=== PATIENT | male | born 1935 | race Caucasian/White ===

== ENCOUNTER 2016-11-06 17:57 | Inpatient (IN) | payer OTHER ==
[~2016-11-06] VITALS: Ht 180.3 cm; Wt 93.4 kg
[~2016-11-06 17:57] MED LIST changes: -CHOL200026 PO; -POTA10TA11 PO
[2016-11-06 18:49] LABS: ASPARTATE AMINO TRANSFERASE 23 U/L (15-37); BLOOD UREA NITROGEN 21 mg/dL (7-18)
[2016-11-06 18:54] LABS: IS PT STATUS REG ER OR PRE ER? YES
[2016-11-06] MEDS ORDERED: CEFTRIAXONE PMX 1GM/50ML 50 ML IV ONE (19:00)
[2016-11-06] MEDS ORDERED: AZITHROMYCIN 500 MG in SODIUM CHLORIDE 0.9% 250 ML IV ONE (19:00)
[2016-11-06] MEDS ORDERED: CEFTRIAXONE PMX 1GM/50ML 50 ML ONE (19:10)
[2016-11-06] MEDS ORDERED: FUROSEMIDE 40 MG/4 ML ONE (19:46)
[2016-11-06] MEDS ORDERED: ASPIRIN 81 MG TABLET CHEW ONE (19:46)
[2016-11-06] MEDS ORDERED: FUROSEMIDE 40 MG/4 ML IV ONE (20:00)
[2016-11-06] MEDS ORDERED: ASPIRIN 81 MG TABLET CHEW PO ONE (20:00)
[2016-11-06] MEDS ORDERED: BISACODYL 10 MG SUPP PR PRN (21:00)
[2016-11-06] MEDS: ATORVASTATIN 10 MG TABLET PO SCH (21:00)
[2016-11-06] MEDS ORDERED: LABETALOL 5MG/ML, 20ML IV PRN (21:00)
[2016-11-06] MEDS ORDERED: WARFARIN 7.5 MG TABLET PO-COUM PRN (21:00)
[2016-11-06] MEDS ORDERED: ACETAMINOPHEN 325 MG TABLET PO PRN (21:00)
[2016-11-06] MEDS ORDERED: DOCUSATE 100 MG CAPSULE PO PRN (21:00)
[2016-11-06] MEDS ORDERED: POLYETHYLENE GLYCOL 17 GM PACKET PO PRN (21:00)
[2016-11-06 21:29] VITALS: BP 116/72
[2016-11-06] MEDS ORDERED: POTA10TA11 PO (22:39)
[2016-11-06] MEDS ORDERED: CHOL200026 PO (22:39)
[2016-11-06 23:56] LABS: IS PT STATUS REG ER OR PRE ER? NO
[2016-11-07 02:00] VITALS: BP 100/59
[2016-11-07 05:32] LABS: ASPARTATE AMINO TRANSFERASE 21 U/L (15-37); BLOOD UREA NITROGEN 21 mg/dL (7-18)
[2016-11-07 05:37] LABS: IS PT STATUS REG ER OR PRE ER? NO
[2016-11-07] MEDS ORDERED: FUROSEMIDE 40 MG/4 ML IV SCH (07:30)
[2016-11-07 07:49] VITALS: BP 113/71
[2016-11-07 14:57] VITALS: BP 102/62
[2016-11-07] MEDS: FUROSEMIDE 20 MG/2 ML IV SCH (17:00)
[2016-11-07] MEDS ORDERED: WARFARIN 7.5 MG TABLET PO-COUM SCH (18:00)
[2016-11-07 19:05] VITALS: BP 103/61
[2016-11-07] MEDS: ATORVASTATIN 10 MG TABLET PO SCH (21:48)
[2016-11-07 23:38] VITALS: BP 100/61
[2016-11-08 04:03] VITALS: BP 107/63
[2016-11-08 04:16] VITALS: BP 121/77
[2016-11-08 04:20] VITALS: BP 103/62
[2016-11-08 05:18] LABS: BLOOD UREA NITROGEN 26 mg/dL (7-18)
[2016-11-08 05:42] VITALS: BP 107/66
[2016-11-08] MEDS ORDERED: MAGNESIUM SULFATE PMX 2GM/50ML 50 ML IV ONE (06:00)
[2016-11-08 07:37] VITALS: BP 133/76
[2016-11-08] MEDS: FUROSEMIDE 20 MG/2 ML IV SCH (08:43)
[2016-11-08 13:33] VITALS: BP 104/65
== END 2016-11-08 15:29 | disposition home or self-care (01) | DRG 291 ==
LOC: ED 19:40 → EDIP 20:10 → 4WST 21:20
PROVIDERS: ADMIT Internal Medicine; ATTEND Internal Medicine
DX: I13.0 Hypertensive heart and chronic kidney disease with heart failure and stage 1 through stage 4 chronic kidney disease, or unspecified chronic kidney disease (principal); I50.33 Acute on chronic diastolic (congestive) heart failure; J96.01 Acute respiratory failure with hypoxia; N17.9 Acute kidney failure, unspecified; D68.69 Other thrombophilia; I48.92 Unspecified atrial flutter; N18.3 Chronic kidney disease, stage 3 (moderate); C61 Malignant neoplasm of prostate; E66.3 Overweight; E78.5 Hyperlipidemia, unspecified; G47.33 Obstructive sleep apnea (adult) (pediatric); I35.0 Nonrheumatic aortic (valve) stenosis; I48.2 Chronic atrial fibrillation; K76.1 Chronic passive congestion of liver; Z68.28 Body mass index [BMI] 28.0-28.9, adult; Z87.891 Personal history of nicotine dependence; Z95.2 Presence of prosthetic heart valve; Z95.3 Presence of xenogenic heart valve
CPT/HCPCS: 36415; 71020; 76604; 80048; 80053; 83605; 83735; 83880; 84145; 84439; 84443; 84484; 85025; 85610; 87040; 93005; 96365; 96368; 96375; J0456; J0696; J1940; J3475; J7050

== ENCOUNTER → 2016-11-06 | Outpatient (CLI) | payer OTHER ==
[~2016-11-06] MED LIST: ATOR10TA9 PO; CHOL200026 PO; FURO-93 PO; POTA10TA11 PO; WARF7.5T6 PO
== END | disposition home or self-care (01) ==
LOC: CFH 13:10
PROVIDERS: ATTEND Internal Medicine
DX: R05 Cough (principal); I11.0 Hypertensive heart disease with heart failure; I50.9 Heart failure, unspecified; I51.7 Cardiomegaly; Z95.2 Presence of prosthetic heart valve; E78.2 Mixed hyperlipidemia; I48.91 Unspecified atrial fibrillation; C61 Malignant neoplasm of prostate; E55.9 Vitamin D deficiency, unspecified; M70.70 Other bursitis of hip, unspecified hip; G47.00 Insomnia, unspecified
CPT/HCPCS: 71020

== ENCOUNTER → 2016-11-20 | Outpatient (CLI) | payer OTHER ==
[~2016-11-20] MED LIST changes: +CHOL200026 PO; +POTA10TA11 PO
== END | disposition home or self-care (01) ==
LOC: CFH 10:34
PROVIDERS: ATTEND Nurse Practitioner Primary Care
DX: I11.0 Hypertensive heart disease with heart failure (principal); J90 Pleural effusion, not elsewhere classified; I50.9 Heart failure, unspecified; R60.0 Localized edema; Z95.4 Presence of other heart-valve replacement
CPT/HCPCS: 71020

== ENCOUNTER → 2017-03-12 | Outpatient (CLI) | payer OTHER ==
[~2017-03-12] MED LIST changes: -CHOL200026 PO; +CHOL200059 PO
== END | disposition home or self-care (01) ==
LOC: CFH 15:38
PROVIDERS: ATTEND Internal Medicine Cardiovascular Disease
DX: I51.7 Cardiomegaly (principal); J90 Pleural effusion, not elsewhere classified; M47.894 Other spondylosis, thoracic region; J98.11 Atelectasis; I48.2 Chronic atrial fibrillation; Z95.2 Presence of prosthetic heart valve
CPT/HCPCS: 71020

== ENCOUNTER → 2018-02-14 | Outpatient (CLI) | payer OTHER ==
[~2018-02-14] MED LIST changes: +WARF7.5T46 PO; -WARF7.5T6 PO
== END | disposition home or self-care (01) ==
LOC: CFH 10:56
PROVIDERS: ATTEND Physician Assistant
DX: I08.1 Rheumatic disorders of both mitral and tricuspid valves (principal); I48.91 Unspecified atrial fibrillation
CPT/HCPCS: 93306

== ENCOUNTER 2018-05-04 02:17 | Inpatient (IN) | payer OTHER ==
[~2018-05-04] VITALS: Ht 177.8 cm; Wt 85.6 kg
[2018-05-04] MEDS ORDERED: ASPIRIN 81 MG TABLET CHEW PO ONE (02:30)
[2018-05-04 02:42] LABS: BASOPHILS # (AUTO) 0.02 x10^3/uL (0-0.1); BASOPHILS % (AUTO) 0 % (0-1); EOSINOPHILS % (AUTO) 0 % (1-7); LYMPHOCYTES # (AUTO) 0.59 x10^3/uL (1-3.4); LYMPHOCYTES % (AUTO) 9 % (22-44); MD NO; MEAN CORPUSCULAR HEMOGLOBIN 32.8 pg (27.5-34.5); MEAN CORPUSCULAR VOLUME 96.6 fL (81-97); MONOCYTES # (AUTO) 0.68 x10^3/uL (0.2-0.8); MONOCYTES % (AUTO) 11 % (2-9); NEUTROPHILS # (AUTO) 5.14 x10^3/uL (1.8-6.8); NEUTROPHILS % (AUTO) 80 % (42-75); PLATELET COUNT 141 x10^3/uL (130-400); RED CELL DISTRIBUTION WIDTH 14.7 % (9.4-14.8)
[2018-05-04 02:51] LABS: INTERNATIONAL NORMALIZED RATIO 1.56 (0.93-1.1); PROTHROMBIN TIME 15.9 Seconds (9.6-11.5)
[2018-05-04 02:54] LABS: ALBUMIN 3.6 g/dL (3.4-5.0); ANION GAP 11 mmol/L (5-15); CALCIUM 9.1 mg/dL (8.5-10.1); CHLORIDE 102 mmol/L (98-107)
[2018-05-04] MEDS ORDERED: ASPIRIN 81 MG TABLET CHEW ONE (02:57)
[2018-05-04] MEDS ORDERED: THROMBIN 20,000 UNIT VIAL TP ONE ×2 (03:08→03:59)
[2018-05-04] MEDS ORDERED: HEPARIN 1,000 UNITS/ML, 30ML ONE (03:08)
[2018-05-04] MEDS ORDERED: PROTAMINE SULFATE 10 MG/ML, 5ML ONE (03:09)
[2018-05-04] MEDS ORDERED: BUPIVACAINE/PF-EPI 0.5% 1:200K ONE (03:09)
[2018-05-04] MEDS ORDERED: WARF1TAB9 PO (03:15)
[2018-05-04] MEDS ORDERED: WARF-36 PO (03:15)
[2018-05-04] MEDS ORDERED: FURO40TA6 PO (03:15)
[2018-05-04] MEDS ORDERED: BACITRACIN 50,000 UNIT ONE (03:23)
[2018-05-04] MEDS ORDERED: FENTANYL PF 250 MCG/5ML ONE (03:32)
[2018-05-04] MEDS ORDERED: PHENYLEPHRINE 10 MG/ML ONE (03:39)
[2018-05-04] MEDS ORDERED: SUCCINYLCHOLINE 20 MG/ML, 10ML ONE (03:39)
[2018-05-04] MEDS ORDERED: ONDANSETRON 2MG/ML, 2ML ONE ×2 (03:39→04:38)
[2018-05-04] MEDS ORDERED: BACITRACIN 50,000 UNIT IRRIG ONE (03:59)
[2018-05-04] MEDS ORDERED: HEPARIN 1,000 UNITS/ML, 30ML IVPush ONE (04:01)
[2018-05-04] MEDS ORDERED: OMNIPAQUE 350 MG/ML, 100ML BOTTLE ONE (04:06)
[2018-05-04] MEDS ORDERED: EPHEDRINE 50 MG/ML, 1ML ONE (04:13)
[2018-05-04] MEDS ORDERED: LABETALOL 5MG/ML, 20ML IV PRN (04:30)
[2018-05-04] MEDS ORDERED: ALBUTEROL/IPRATROPIUM 2.5MG/0.5MG, 3 ML NPPB PRN (04:30)
[2018-05-04] MEDS ORDERED: ACETAMINOPHEN 325 MG TABLET PO PRN (04:30)
[2018-05-04] MEDS ORDERED: hydrALAzine 20 MG/ML, 1ML IV PRN (04:30)
[2018-05-04] MEDS ORDERED: FENTANYL PF 100 MCG/2ML IV PRN (04:30)
[2018-05-04] MEDS ORDERED: ONDANSETRON 2MG/ML, 2ML IV PRN (04:30)
[2018-05-04] MEDS ORDERED: PROMETHAZINE 12.5 MG SUPP PR PRN (04:30)
[2018-05-04] MEDS ORDERED: HYDROmorphone 2 MG/ML, 1ML IV PRN (04:30)
[2018-05-04] MEDS ORDERED: OXYcodone 5 MG/5 ML ORAL.SOL UDC PO PRN (04:30)
[2018-05-04] MEDS ORDERED: PROPOFOL 10 MG/ML, 20ML ONE (04:38)
[2018-05-04] MEDS ORDERED: CEFAZOLIN 1,000 MG ONE (04:38)
[2018-05-04] MEDS ORDERED: DEXAMETHASONE 4 MG/ML, 1ML ONE (04:38)
[2018-05-04] MEDS ORDERED: HEPARIN 5,000 UNITS/ML, 1ML IV ONE (05:00)
[2018-05-04] MEDS ORDERED: HEPARIN 25,000 UNITS/500ML PMX 500 ML IV PRN (05:00)
[2018-05-04] MEDS ORDERED: HEPARIN 5,000 UNITS/ML, 1ML IV PRN (05:00)
[2018-05-04] MEDS ORDERED: MORPHINE SULFATE 4 MG/ML, 1ML IVPush PRN (07:30)
[2018-05-04] MEDS ORDERED: HYDROcodone/APAP 5/325 TABLET PO PRN ×2 (07:30→09:00)
[2018-05-04 07:33] VITALS: BP 103/67
[2018-05-04] MEDS: D5%-0.9% NACL+KCL 20MEQ 1,000 ML IV SCH ×2 (08:03→21:30)
[2018-05-04] MEDS ORDERED: SODIUM CHLORIDE 0.9% 1,000 ML IV SCH (08:34)
[2018-05-04] MEDS ORDERED: ONDANSETRON 2MG/ML, 2ML IVPush PRN (09:00)
[2018-05-04] MEDS ORDERED: morphine SULFATE 10 MG/ML, 1ML IVPush PRN (09:00)
[2018-05-04] MEDS: CHOLECALCIFEROL 1,000 UNIT TABLET PO SCH (12:45)
[2018-05-04 12:55] VITALS: BP 106/59
[2018-05-04] MEDS ORDERED: ATOR40TA78 PO (16:48)
[2018-05-04] MEDS ORDERED: SPIR25TA5 PO (16:48)
[2018-05-04 19:49] VITALS: BP 111/64
[2018-05-05 01:48] VITALS: BP 107/72
[2018-05-05 05:40] LABS: CHLORIDE 105 mmol/L (98-107)
[2018-05-05 05:49] LABS: BASOPHILS % (AUTO) 0 % (0-1); EOSINOPHILS % (AUTO) 0 % (1-7); LYMPHOCYTES # (AUTO) 0.62 x10^3/uL (1-3.4); LYMPHOCYTES % (AUTO) 7 % (22-44); MD NO; MEAN CORPUSCULAR HEMOGLOBIN 34.2 pg (27.5-34.5); MEAN CORPUSCULAR VOLUME 97.9 fL (81-97); MEAN PLATELET VOLUME 8.2 fL (7.4-10.4); MONOCYTES # (AUTO) 1.26 x10^3/uL (0.2-0.8); MONOCYTES % (AUTO) 14 % (2-9); NEUTROPHILS % (AUTO) 79 % (42-75); PLATELET COUNT 130 x10^3/uL (130-400); RED BLOOD COUNT 3.01 x10^6/uL (4.38-5.82); RED CELL DISTRIBUTION WIDTH 14.8 % (9.4-14.8)
[2018-05-05 05:51] LABS: ALANINE AMINOTRANSFERASE 15 U/L (12-78); ALBUMIN 3.1 g/dL (3.4-5.0); ALKALINE PHOSPHATASE 69 U/L (45-117); ANION GAP 9 mmol/L (5-15); BILIRUBIN,TOTAL 0.9 mg/dL (0.2-1.0); CALCIUM 8.7 mg/dL (8.5-10.1); CREATININE 1.64 mg/dL (0.7-1.3)
[2018-05-05] MEDS: CHOLECALCIFEROL 1,000 UNIT TABLET PO SCH (07:20)
[2018-05-05] MEDS: D5%-0.9% NACL+KCL 20MEQ 1,000 ML IV SCH (07:23)
[2018-05-05] MEDS: INSULIN LISPRO 100 UNITS/ML, PEN SQ-INSULIN SCH ×4 (08:00→20:18)
[2018-05-05] MEDS ORDERED: SODIUM POLYSTYRENE SULFONATE ORAL SUSP PO ONE (08:00)
[2018-05-05 09:15] VITALS: BP 97/53
[2018-05-05 10:46] LABS: HEMOGLOBIN A1C 5.7 % (4.2-6.3)
[2018-05-05 11:28] LABS: ANION GAP 7 mmol/L (5-15); CALCIUM 9.1 mg/dL (8.5-10.1); CHLORIDE 106 mmol/L (98-107); CREATININE 1.57 mg/dL (0.7-1.3)
[2018-05-05 13:58] LABS: INTERNATIONAL NORMALIZED RATIO 1.48 (0.93-1.1); PROTHROMBIN TIME 15.1 Seconds (9.6-11.5)
[2018-05-05 14:16] VITALS: BP 103/63
[2018-05-05 19:50] VITALS: BP 103/57
[2018-05-05] MEDS: ACETAMINOPHEN 325 MG TABLET PO PRN (20:13)
[2018-05-06 01:23] VITALS: BP 101/65
[2018-05-06 05:31] LABS: MEAN CORPUSCULAR HGB CONC 33.6 g/dL (33.2-36.2); MEAN CORPUSCULAR VOLUME 98.1 fL (81-97); MEAN PLATELET VOLUME 8.5 fL (7.4-10.4); PLATELET COUNT 134 x10^3/uL (130-400); RED BLOOD COUNT 3.17 x10^6/uL (4.38-5.82); RED CELL DISTRIBUTION WIDTH 14.9 % (9.4-14.8)
[2018-05-06 05:46] LABS: CHLORIDE 103 mmol/L (98-107)
[2018-05-06 05:57] LABS: ALANINE AMINOTRANSFERASE 17 U/L (12-78); ALKALINE PHOSPHATASE 78 U/L (45-117); ANION GAP 8 mmol/L (5-15); BILIRUBIN,TOTAL 1.6 mg/dL (0.2-1.0); CALCIUM 8.7 mg/dL (8.5-10.1); CREATININE 1.46 mg/dL (0.7-1.3); TOTAL PROTEIN 6.1 g/dL (6.4-8.2)
[2018-05-06 06:14] LABS: BASOPHILS # (AUTO) 0.02 x10^3/uL (0-0.1); BASOPHILS % (AUTO) 0 % (0-1); EOSINOPHILS # (AUTO) 0.01 x10^3/uL (0-0.4); EOSINOPHILS % (AUTO) 0 % (1-7); LYMPHOCYTES % (AUTO) 6 % (22-44); MD SCAN; MONOCYTES # (AUTO) 0.89 x10^3/uL (0.2-0.8); MONOCYTES % (AUTO) 9 % (2-9); NEUTROPHILS # (AUTO) 8.29 x10^3/uL (1.8-6.8); NEUTROPHILS % (AUTO) 85 % (42-75)
[2018-05-06] MEDS ORDERED: SODIUM POLYSTYRENE SULFONATE ORAL SUSP PO ONE (08:00)
[2018-05-06] MEDS: INSULIN LISPRO 100 UNITS/ML, PEN SQ-INSULIN SCH ×4 (08:00→20:10)
[2018-05-06 08:42] VITALS: BP 96/51
[2018-05-06] MEDS: FUROSEMIDE 40 MG TABLET PO SCH (09:55)
[2018-05-06] MEDS: CHOLECALCIFEROL 1,000 UNIT TABLET PO SCH (09:55)
[2018-05-06] MEDS ORDERED: WARFARIN MODERAT DOSE PROTOCOL XX PRN (10:30)
[2018-05-06] MEDS ORDERED: HEPARIN 5,000 UNITS/ML, 1ML IV ONE (11:00)
[2018-05-06 11:28] LABS: ANION GAP 11 mmol/L (5-15); CALCIUM 8.9 mg/dL (8.5-10.1); CHLORIDE 100 mmol/L (98-107); CREATININE 1.75 mg/dL (0.7-1.3)
[2018-05-06 11:30] LABS: INTERNATIONAL NORMALIZED RATIO 1.31 (0.93-1.1); PROTHROMBIN TIME 13.4 Seconds (9.6-11.5)
[2018-05-06] MEDS: HEPARIN 25,000 UNITS/500ML PMX 500 ML IV PRN (12:51)
[2018-05-06 15:01] VITALS: BP 90/49
[2018-05-06] MEDS ORDERED: WARFARIN 7.5 MG TABLET PO-COUM ONE (18:00)
[2018-05-06 19:39] VITALS: BP 103/54
[2018-05-06] MEDS: ATORVASTATIN 40 MG TABLET PO SCH (20:05)
[2018-05-06] MEDS: HEPARIN 5,000 UNITS/ML, 1ML IV PRN (20:05)
[2018-05-07 01:50] VITALS: BP 94/58
[2018-05-07 02:35] LABS: ALBUMIN 2.6 g/dL (3.4-5.0); ANION GAP 10 mmol/L (5-15); CALCIUM 8.4 mg/dL (8.5-10.1); CHLORIDE 100 mmol/L (98-107)
[2018-05-07] MEDS: HEPARIN 5,000 UNITS/ML, 1ML IV PRN ×3 (02:37→23:08)
[2018-05-07 02:38] LABS: ALANINE AMINOTRANSFERASE 21 U/L (12-78); ALKALINE PHOSPHATASE 75 U/L (45-117); BILIRUBIN,TOTAL 1.6 mg/dL (0.2-1.0); CREATININE 1.61 mg/dL (0.7-1.3); INTERNATIONAL NORMALIZED RATIO 1.3 (0.93-1.1); PROTHROMBIN TIME 13.3 Seconds (9.6-11.5); TOTAL PROTEIN 5.7 g/dL (6.4-8.2)
[2018-05-07] MEDS: INSULIN LISPRO 100 UNITS/ML, PEN SQ-INSULIN SCH ×4 (08:00→21:08)
[2018-05-07 08:58] VITALS: BP 98/54
[2018-05-07 09:35] VITALS: BP 94/53
[2018-05-07] MEDS: CHOLECALCIFEROL 1,000 UNIT TABLET PO SCH (09:37)
[2018-05-07] MEDS: FUROSEMIDE 40 MG TABLET PO SCH (09:37)
[2018-05-07] MEDS: HEPARIN 25,000 UNITS/500ML PMX 500 ML IV PRN (11:20)
[2018-05-07] MEDS ORDERED: WARFARIN 7.5 MG TABLET PO-COUM ONE (18:00)
[2018-05-07 19:13] VITALS: BP 101/58
[2018-05-07] MEDS ORDERED: TAMS0.4C2 PO (19:36)
[2018-05-07] MEDS: ATORVASTATIN 40 MG TABLET PO SCH (21:05)
[2018-05-07] MEDS: TAMSULOSIN 0.4 MG CAP.ER.24H PO SCH (21:05)
[2018-05-08 01:53] VITALS: BP 96/56
[2018-05-08 05:02] LABS: INTERNATIONAL NORMALIZED RATIO 1.31 (0.93-1.1); PROTHROMBIN TIME 13.4 Seconds (9.6-11.5)
[2018-05-08 05:07] LABS: ALBUMIN 2.6 g/dL (3.4-5.0); ANION GAP 9 mmol/L (5-15); CALCIUM 8.2 mg/dL (8.5-10.1); CHLORIDE 101 mmol/L (98-107)
[2018-05-08 05:10] LABS: ALANINE AMINOTRANSFERASE 25 U/L (12-78); ALKALINE PHOSPHATASE 76 U/L (45-117); BILIRUBIN,TOTAL 1.2 mg/dL (0.2-1.0); CREATININE 1.38 mg/dL (0.7-1.3); TOTAL PROTEIN 5.6 g/dL (6.4-8.2)
[2018-05-08] MEDS: HEPARIN 25,000 UNITS/500ML PMX 500 ML IV PRN ×2 (05:36→21:47)
[2018-05-08 06:26] VITALS: BP 107/55
[2018-05-08] MEDS: INSULIN LISPRO 100 UNITS/ML, PEN SQ-INSULIN SCH ×4 (07:00→21:00)
[2018-05-08] MEDS: CHOLECALCIFEROL 1,000 UNIT TABLET PO SCH (09:12)
[2018-05-08 14:05] VITALS: BP 103/61
[2018-05-08] MEDS ORDERED: WARFARIN 5 MG TABLET PO-COUM ONE (17:48)
[2018-05-08] MEDS ORDERED: WARFARIN 10 MG TABLET PO-COUM ONE (18:00)
[2018-05-08 19:48] VITALS: BP 100/59
[2018-05-08] MEDS: ATORVASTATIN 40 MG TABLET PO SCH (21:48)
[2018-05-08] MEDS: TAMSULOSIN 0.4 MG CAP.ER.24H PO SCH (21:48)
[2018-05-09 01:29] VITALS: BP 92/56
[2018-05-09 05:53] LABS: INTERNATIONAL NORMALIZED RATIO 1.4 (0.93-1.1); PROTHROMBIN TIME 14.3 Seconds (9.6-11.5)
[2018-05-09 06:02] LABS: ANION GAP 10 mmol/L (5-15); CALCIUM 8.3 mg/dL (8.5-10.1); CHLORIDE 100 mmol/L (98-107)
[2018-05-09 06:04] LABS: CREATININE 1.17 mg/dL (0.7-1.3)
[2018-05-09] MEDS: INSULIN LISPRO 100 UNITS/ML, PEN SQ-INSULIN SCH ×4 (07:00→19:58)
[2018-05-09 08:12] VITALS: BP 99/62
[2018-05-09] MEDS: CHOLECALCIFEROL 1,000 UNIT TABLET PO SCH (09:25)
[2018-05-09 13:10] VITALS: BP 99/62
[2018-05-09] MEDS: HEPARIN 25,000 UNITS/500ML PMX 500 ML IV PRN (14:32)
[2018-05-09] MEDS ORDERED: WARFARIN 5 MG TABLET PO-COUM ONE (17:58)
[2018-05-09] MEDS ORDERED: WARFARIN 10 MG TABLET PO-COUM ONE (18:00)
[2018-05-09 19:43] VITALS: BP 110/70
[2018-05-09] MEDS: TAMSULOSIN 0.4 MG CAP.ER.24H PO SCH (19:58)
[2018-05-09] MEDS: ATORVASTATIN 40 MG TABLET PO SCH (19:58)
[2018-05-10 01:18] VITALS: BP 99/60
[2018-05-10 05:27] LABS: INTERNATIONAL NORMALIZED RATIO 1.73 (0.93-1.1); PROTHROMBIN TIME 17.6 Seconds (9.6-11.5)
[2018-05-10 05:32] LABS: ANION GAP 9 mmol/L (5-15); CALCIUM 8.6 mg/dL (8.5-10.1); CHLORIDE 101 mmol/L (98-107)
[2018-05-10] MEDS: HEPARIN 25,000 UNITS/500ML PMX 500 ML IV PRN ×2 (06:57→21:34)
[2018-05-10] MEDS: INSULIN LISPRO 100 UNITS/ML, PEN SQ-INSULIN SCH ×4 (07:00→21:00)
[2018-05-10 07:35] VITALS: BP 99/58
[2018-05-10] MEDS: CHOLECALCIFEROL 1,000 UNIT TABLET PO SCH (07:51)
[2018-05-10 13:50] VITALS: BP 97/59
[2018-05-10] MEDS: FUROSEMIDE 40 MG TABLET PO SCH (16:36)
[2018-05-10] MEDS ORDERED: WARFARIN 7.5 MG TABLET PO-COUM ONE (18:00)
[2018-05-10 18:48] VITALS: BP 105/52
[2018-05-10 20:18] VITALS: BP 109/62
[2018-05-10] MEDS: TAMSULOSIN 0.4 MG CAP.ER.24H PO SCH (21:31)
[2018-05-10] MEDS: ATORVASTATIN 40 MG TABLET PO SCH (21:31)
[2018-05-11 02:09] VITALS: BP 112/60
[2018-05-11 05:29] LABS: INTERNATIONAL NORMALIZED RATIO 2.01 (0.93-1.1); PROTHROMBIN TIME 20.4 Seconds (9.6-11.5)
[2018-05-11] MEDS: INSULIN LISPRO 100 UNITS/ML, PEN SQ-INSULIN SCH ×4 (06:19→21:42)
[2018-05-11 06:32] VITALS: BP 95/51
[2018-05-11] MEDS: FUROSEMIDE 40 MG TABLET PO SCH ×2 (06:36→18:06)
[2018-05-11] MEDS: CHOLECALCIFEROL 1,000 UNIT TABLET PO SCH (10:15)
[2018-05-11 12:20] VITALS: BP 95/54
[2018-05-11] MEDS: HEPARIN 25,000 UNITS/500ML PMX 500 ML IV PRN (14:23)
[2018-05-11] MEDS ORDERED: WARFARIN 5 MG TABLET PO-COUM ONE (18:00)
[2018-05-11 18:55] VITALS: BP 102/60
[2018-05-11] MEDS: ATORVASTATIN 40 MG TABLET PO SCH (21:40)
[2018-05-11] MEDS: TAMSULOSIN 0.4 MG CAP.ER.24H PO SCH (21:40)
[2018-05-12 02:40] VITALS: BP 96/58
[2018-05-12] MEDS: HEPARIN 25,000 UNITS/500ML PMX 500 ML IV PRN (05:31)
[2018-05-12 05:46] LABS: ANION GAP 10 mmol/L (5-15); CALCIUM 8.8 mg/dL (8.5-10.1); CHLORIDE 96 mmol/L (98-107)
[2018-05-12 05:47] LABS: CREATININE 1.49 mg/dL (0.7-1.3)
[2018-05-12] MEDS: INSULIN LISPRO 100 UNITS/ML, PEN SQ-INSULIN SCH ×4 (06:31→21:00)
[2018-05-12 07:26] VITALS: BP 105/63
[2018-05-12 07:46] LABS: INTERNATIONAL NORMALIZED RATIO 2.01 (0.93-1.1); PROTHROMBIN TIME 20.6 Seconds (9.6-11.5)
[2018-05-12] MEDS: FUROSEMIDE 40 MG TABLET PO SCH ×2 (08:23→17:36)
[2018-05-12] MEDS: CHOLECALCIFEROL 1,000 UNIT TABLET PO SCH (08:23)
[2018-05-12 13:54] VITALS: BP 108/65
[2018-05-12 17:09] LABS: ALANINE AMINOTRANSFERASE 29 U/L (12-78); ALBUMIN 3.1 g/dL (3.4-5.0); ANION GAP 9 mmol/L (5-15); CHLORIDE 98 mmol/L (98-107); CREATININE 1.53 mg/dL (0.7-1.3)
[2018-05-12] MEDS ORDERED: WARFARIN 7.5 MG TABLET PO-COUM SCH (18:00)
[2018-05-12 18:25] VITALS: BP 101/57
[2018-05-12] MEDS: TAMSULOSIN 0.4 MG CAP.ER.24H PO SCH (21:45)
[2018-05-12] MEDS: CALCIUM CARBONATE 500 MG TAB.CHEW PO PRN (21:45)
[2018-05-12] MEDS: ATORVASTATIN 40 MG TABLET PO SCH (21:45)
[2018-05-13 01:30] VITALS: BP 100/59
[2018-05-13 05:43] LABS: INTERNATIONAL NORMALIZED RATIO 1.84 (0.93-1.1); PROTHROMBIN TIME 18.9 Seconds (9.6-11.5)
[2018-05-13] MEDS: INSULIN LISPRO 100 UNITS/ML, PEN SQ-INSULIN SCH ×4 (07:00→21:00)
[2018-05-13 07:52] VITALS: BP 108/55
[2018-05-13] MEDS: CHOLECALCIFEROL 1,000 UNIT TABLET PO SCH (07:56)
[2018-05-13] MEDS: FUROSEMIDE 40 MG TABLET PO SCH ×2 (07:57→18:40)
[2018-05-13 08:56] LABS: BASOPHILS # (AUTO) 0.06 x10^3/uL (0-0.1); BASOPHILS % (AUTO) 1 % (0-1); EOSINOPHILS # (AUTO) 0.03 x10^3/uL (0-0.4); EOSINOPHILS % (AUTO) 0 % (1-7); LYMPHOCYTES % (AUTO) 12 % (22-44); MD NO; MEAN CORPUSCULAR HEMOGLOBIN 32.9 pg (27.5-34.5); MEAN CORPUSCULAR HGB CONC 33.7 g/dL (33.2-36.2); MEAN CORPUSCULAR VOLUME 97.8 fL (81-97); MEAN PLATELET VOLUME 8.2 fL (7.4-10.4); MONOCYTES # (AUTO) 0.57 x10^3/uL (0.2-0.8); MONOCYTES % (AUTO) 7 % (2-9); NEUTROPHILS # (AUTO) 6.88 x10^3/uL (1.8-6.8); NEUTROPHILS % (AUTO) 81 % (42-75); PLATELET COUNT 179 x10^3/uL (130-400); RED BLOOD COUNT 3.08 x10^6/uL (4.38-5.82); RED CELL DISTRIBUTION WIDTH 15.6 % (9.4-14.8)
[2018-05-13 09:07] LABS: ALANINE AMINOTRANSFERASE 28 U/L (12-78); ALBUMIN 3.3 g/dL (3.4-5.0); ANION GAP 10 mmol/L (5-15); CHLORIDE 97 mmol/L (98-107); CREATININE 1.47 mg/dL (0.7-1.3)
[2018-05-13 09:09] LABS: ALKALINE PHOSPHATASE 94 U/L (45-117); TOTAL PROTEIN 6.6 g/dL (6.4-8.2)
[2018-05-13] MEDS ORDERED: HEPARIN 5,000 UNITS/ML, 1ML IV ONE (10:00)
[2018-05-13] MEDS: HEPARIN 25,000 UNITS/500ML PMX 500 ML IV PRN (10:19)
[2018-05-13] MEDS: ACETAMINOPHEN 325 MG TABLET PO PRN (11:58)
[2018-05-13 12:30] VITALS: BP 97/52
[2018-05-13] MEDS: HEPARIN 5,000 UNITS/ML, 1ML IV PRN ×2 (17:17→23:46)
[2018-05-13] MEDS ORDERED: WARFARIN 7.5 MG TABLET PO-COUM ONE (18:00)
[2018-05-13] MEDS: DOCUSATE 100 MG CAPSULE PO PRN (18:50)
[2018-05-13 18:55] VITALS: BP 105/62
[2018-05-13] MEDS: TAMSULOSIN 0.4 MG CAP.ER.24H PO SCH (21:16)
[2018-05-13] MEDS: ATORVASTATIN 40 MG TABLET PO SCH (21:16)
[2018-05-14 01:50] VITALS: BP 104/60
[2018-05-14 05:45] LABS: BASOPHILS # (AUTO) 0.04 x10^3/uL (0-0.1); BASOPHILS % (AUTO) 1 % (0-1); EOSINOPHILS # (AUTO) 0.06 x10^3/uL (0-0.4); EOSINOPHILS % (AUTO) 1 % (1-7); LYMPHOCYTES # (AUTO) 1.38 x10^3/uL (1-3.4); LYMPHOCYTES % (AUTO) 15 % (22-44); MD NO; MEAN CORPUSCULAR HEMOGLOBIN 33.8 pg (27.5-34.5); MEAN CORPUSCULAR HGB CONC 34.5 g/dL (33.2-36.2); MEAN CORPUSCULAR VOLUME 97.8 fL (81-97); MEAN PLATELET VOLUME 8.9 fL (7.4-10.4); MONOCYTES # (AUTO) 0.79 x10^3/uL (0.2-0.8); MONOCYTES % (AUTO) 9 % (2-9); NEUTROPHILS % (AUTO) 75 % (42-75); PLATELET COUNT 167 x10^3/uL (130-400); RED BLOOD COUNT 2.91 x10^6/uL (4.38-5.82); RED CELL DISTRIBUTION WIDTH 15.9 % (9.4-14.8)
[2018-05-14 05:55] LABS: ALBUMIN 2.9 g/dL (3.4-5.0); ANION GAP 10 mmol/L (5-15); CALCIUM 8.9 mg/dL (8.5-10.1); CHLORIDE 99 mmol/L (98-107)
[2018-05-14 05:58] LABS: INTERNATIONAL NORMALIZED RATIO 1.98 (0.93-1.1); PROTHROMBIN TIME 20.3 Seconds (9.6-11.5)
[2018-05-14 05:59] LABS: ALANINE AMINOTRANSFERASE 28 U/L (12-78); ALKALINE PHOSPHATASE 83 U/L (45-117); BILIRUBIN,TOTAL 1.7 mg/dL (0.2-1.0); CREATININE 1.33 mg/dL (0.7-1.3); TOTAL PROTEIN 5.9 g/dL (6.4-8.2)
[2018-05-14] MEDS: INSULIN LISPRO 100 UNITS/ML, PEN SQ-INSULIN SCH ×4 (06:25→21:23)
[2018-05-14 06:58] VITALS: BP 90/55
[2018-05-14 08:10] VITALS: BP 108/56
[2018-05-14] MEDS: FUROSEMIDE 40 MG TABLET PO SCH ×2 (08:14→16:57)
[2018-05-14] MEDS: CHOLECALCIFEROL 1,000 UNIT TABLET PO SCH (08:14)
[2018-05-14] MEDS: HEPARIN 25,000 UNITS/500ML PMX 500 ML IV PRN (11:25)
[2018-05-14] MEDS: HEPARIN 5,000 UNITS/ML, 1ML IV PRN (12:21)
[2018-05-14 14:09] VITALS: BP 100/61
[2018-05-14] MEDS ORDERED: WARFARIN 7.5 MG TABLET PO-COUM ONE (18:00)
[2018-05-14 19:24] VITALS: BP 105/61
[2018-05-14] MEDS: CALCIUM CARBONATE 500 MG TAB.CHEW PO PRN (19:36)
[2018-05-14] MEDS: ATORVASTATIN 40 MG TABLET PO SCH (20:00)
[2018-05-14] MEDS: TAMSULOSIN 0.4 MG CAP.ER.24H PO SCH (20:00)
[2018-05-15 00:17] VITALS: BP 86/51
[2018-05-15] MEDS: CALCIUM CARBONATE 500 MG TAB.CHEW PO PRN (00:28)
[2018-05-15 00:31] VITALS: BP 91/50
[2018-05-15] MEDS: DOCUSATE 100 MG CAPSULE PO PRN ×2 (02:13→20:52)
[2018-05-15] MEDS: HEPARIN 25,000 UNITS/500ML PMX 500 ML IV PRN ×2 (02:28→20:57)
[2018-05-15 04:53] LABS: BASOPHILS # (AUTO) 0.08 x10^3/uL (0-0.1); BASOPHILS % (AUTO) 1 % (0-1); EOSINOPHILS # (AUTO) 0.02 x10^3/uL (0-0.4); EOSINOPHILS % (AUTO) 0 % (1-7); LYMPHOCYTES # (AUTO) 1.23 x10^3/uL (1-3.4); LYMPHOCYTES % (AUTO) 13 % (22-44); MD NO; MEAN CORPUSCULAR HEMOGLOBIN 33.4 pg (27.5-34.5); MEAN CORPUSCULAR HGB CONC 33.9 g/dL (33.2-36.2); MEAN CORPUSCULAR VOLUME 98.4 fL (81-97); MEAN PLATELET VOLUME 8.4 fL (7.4-10.4); MONOCYTES # (AUTO) 0.67 x10^3/uL (0.2-0.8); MONOCYTES % (AUTO) 7 % (2-9); NEUTROPHILS # (AUTO) 7.81 x10^3/uL (1.8-6.8); NEUTROPHILS % (AUTO) 80 % (42-75); PLATELET COUNT 162 x10^3/uL (130-400); RED BLOOD COUNT 3.01 x10^6/uL (4.38-5.82); RED CELL DISTRIBUTION WIDTH 16.2 % (9.4-14.8)
[2018-05-15 04:59] LABS: INTERNATIONAL NORMALIZED RATIO 2.1 (0.93-1.1); PROTHROMBIN TIME 21.5 Seconds (9.6-11.5)
[2018-05-15 05:03] LABS: ANION GAP 11 mmol/L (5-15); CALCIUM 8.7 mg/dL (8.5-10.1); CHLORIDE 97 mmol/L (98-107); CREATININE 1.35 mg/dL (0.7-1.3)
[2018-05-15 06:32] VITALS: BP 95/56
[2018-05-15] MEDS: INSULIN LISPRO 100 UNITS/ML, PEN SQ-INSULIN SCH ×4 (07:01→20:46)
[2018-05-15 07:35] VITALS: BP 103/66
[2018-05-15] MEDS: CHOLECALCIFEROL 1,000 UNIT TABLET PO SCH (07:38)
[2018-05-15] MEDS: FUROSEMIDE 40 MG TABLET PO SCH ×2 (07:38→17:16)
[2018-05-15 12:40] VITALS: BP 125/71
[2018-05-15] MEDS ORDERED: WARFARIN 7.5 MG TABLET PO-COUM ONE (18:00)
[2018-05-15] MEDS: ATORVASTATIN 40 MG TABLET PO SCH (20:47)
[2018-05-15] MEDS: TAMSULOSIN 0.4 MG CAP.ER.24H PO SCH (20:47)
[2018-05-15 21:05] VITALS: BP 106/66
[2018-05-16 03:01] VITALS: BP 94/56
[2018-05-16 05:28] LABS: INTERNATIONAL NORMALIZED RATIO 2.12 (0.93-1.1); PROTHROMBIN TIME 21.7 Seconds (9.6-11.5)
[2018-05-16 06:38] LABS: BASOPHILS # (AUTO) 0.04 x10^3/uL (0-0.1); BASOPHILS % (AUTO) 1 % (0-1); EOSINOPHILS # (AUTO) 0.02 x10^3/uL (0-0.4); EOSINOPHILS % (AUTO) 0 % (1-7); LYMPHOCYTES # (AUTO) 1.22 x10^3/uL (1-3.4); LYMPHOCYTES % (AUTO) 14 % (22-44); MD NO; MEAN CORPUSCULAR HEMOGLOBIN 33.2 pg (27.5-34.5); MEAN CORPUSCULAR VOLUME 97.6 fL (81-97); MEAN PLATELET VOLUME 9.1 fL (7.4-10.4); MONOCYTES % (AUTO) 8 % (2-9); NEUTROPHILS # (AUTO) 6.93 x10^3/uL (1.8-6.8); NEUTROPHILS % (AUTO) 78 % (42-75); PLATELET COUNT 162 x10^3/uL (130-400); RED BLOOD COUNT 3.01 x10^6/uL (4.38-5.82); RED CELL DISTRIBUTION WIDTH 16.4 % (9.4-14.8)
[2018-05-16 06:50] LABS: ANION GAP 11 mmol/L (5-15); CALCIUM 8.6 mg/dL (8.5-10.1); CHLORIDE 97 mmol/L (98-107)
[2018-05-16 06:51] LABS: CREATININE 1.42 mg/dL (0.7-1.3)
[2018-05-16] MEDS: INSULIN LISPRO 100 UNITS/ML, PEN SQ-INSULIN SCH ×4 (07:00→20:54)
[2018-05-16 07:51] VITALS: BP 90/49
[2018-05-16 08:30] VITALS: BP 114/69
[2018-05-16] MEDS: CHOLECALCIFEROL 1,000 UNIT TABLET PO SCH (08:30)
[2018-05-16] MEDS: FUROSEMIDE 40 MG TABLET PO SCH ×2 (08:30→17:03)
[2018-05-16] MEDS ORDERED: TAMS-11 PO (11:12)
[2018-05-16] MEDS ORDERED: FURO40TA6 PO (11:12)
[2018-05-16 12:51] VITALS: BP 97/58
[2018-05-16] MEDS: HEPARIN 25,000 UNITS/500ML PMX 500 ML IV PRN (14:54)
[2018-05-16] MEDS ORDERED: WARFARIN 7.5 MG TABLET PO-COUM ONE (18:00)
[2018-05-16 18:54] VITALS: BP 108/65
[2018-05-16] MEDS: CALCIUM CARBONATE 500 MG TAB.CHEW PO PRN (20:54)
[2018-05-16] MEDS: ATORVASTATIN 40 MG TABLET PO SCH (20:54)
[2018-05-16] MEDS: TAMSULOSIN 0.4 MG CAP.ER.24H PO SCH (20:54)
[2018-05-17 01:56] VITALS: BP 100/58
[2018-05-17 05:40] LABS: INTERNATIONAL NORMALIZED RATIO 2.14 (0.93-1.1); PROTHROMBIN TIME 21.9 Seconds (9.6-11.5)
[2018-05-17 06:40] VITALS: BP 100/62
[2018-05-17] MEDS: INSULIN LISPRO 100 UNITS/ML, PEN SQ-INSULIN SCH ×3 (07:00→16:00)
[2018-05-17] MEDS: CHOLECALCIFEROL 1,000 UNIT TABLET PO SCH (07:50)
[2018-05-17] MEDS: FUROSEMIDE 40 MG TABLET PO SCH ×2 (07:50→16:31)
[2018-05-17 12:15] VITALS: BP 92/52
[2018-05-17] MEDS ORDERED: WARFARIN 7.5 MG TABLET PO-COUM ONE (18:00)
== END 2018-05-17 18:00 | DRG 252 ==
LOC: OR 03:18 → EDIP 06:32 → 5SO 06:57 → 4NOR 05-10 18:34
PROVIDERS: ADMIT Hospitalist; ATTEND Hospitalist
PROC: 04CS0ZZ Extirpation of Matter from Left Posterior Tibial Artery, Open Approach (ICD-10-PCS; 2018-05-04)
PROC: 04CL0ZZ Extirpation of Matter from Left Femoral Artery, Open Approach (ICD-10-PCS; 2018-05-04)
PROC: 04CN0ZZ Extirpation of Matter from Left Popliteal Artery, Open Approach (ICD-10-PCS; principal; 2018-05-04 03:00)
DX: I74.3 Embolism and thrombosis of arteries of the lower extremities (principal); N17.0 Acute kidney failure with tubular necrosis; D68.59 Other primary thrombophilia; E87.1 Hypo-osmolality and hyponatremia; E87.2 Acidosis; I50.32 Chronic diastolic (congestive) heart failure; I99.8 Other disorder of circulatory system; D64.9 Anemia, unspecified; E78.5 Hyperlipidemia, unspecified; E87.5 Hyperkalemia; G47.33 Obstructive sleep apnea (adult) (pediatric); I35.0 Nonrheumatic aortic (valve) stenosis; I48.2 Chronic atrial fibrillation; I77.810 Thoracic aortic ectasia; J44.9 Chronic obstructive pulmonary disease, unspecified; N18.3 Chronic kidney disease, stage 3 (moderate); Z79.01 Long term (current) use of anticoagulants; Z85.46 Personal history of malignant neoplasm of prostate; Z87.891 Personal history of nicotine dependence; Z95.3 Presence of xenogenic heart valve; R73.9 Hyperglycemia, unspecified; I27.20 Pulmonary hypertension, unspecified
CPT/HCPCS: 36415; 80048; 80053; 82040; 82962; 83036; 83605; 83735; 84100; 84443; 84450; 84460; 85025; 85520; 85610; 93005; 99291; G0378; J0690; J1100; J1644; J2405; J2704; J2720; J3010; Q9967; C1757; J0330; J1815; J2370; J3480

== ENCOUNTER → 2018-06-17 | Outpatient (CLI) | payer OTHER ==
[~2018-06-17] MED LIST changes: +ATOR40TA78 PO; +FURO40TA6 PO; +SPIR25TA5 PO; +TAMS-11 PO; +TAMS0.4C2 PO; +WARF-36 PO; +WARF1TAB9 PO
== END | disposition home or self-care (01) ==
LOC: CFH 13:58
PROVIDERS: ATTEND Nurse Practitioner Primary Care
DX: J90 Pleural effusion, not elsewhere classified (principal); I51.7 Cardiomegaly
CPT/HCPCS: 71046

== ENCOUNTER 2019-01-15 15:09 | Inpatient (IN) | payer OTHER ==
[~2019-01-15] VITALS: Ht 177.8 cm; Wt 80.7 kg
[2019-01-15 15:42] LABS: BASOPHILS % (AUTO) 0 % (0-1); EOSINOPHILS % (AUTO) 0 % (1-7); LYMPHOCYTES # (AUTO) 0.27 x10^3/uL (1-3.4); LYMPHOCYTES % (AUTO) 5 % (22-44); MD NO; MEAN CORPUSCULAR HEMOGLOBIN 32.7 pg (27.5-34.5); MEAN CORPUSCULAR HGB CONC 33.4 g/dL (33.2-36.2); MEAN CORPUSCULAR VOLUME 98.1 fL (81-97); MEAN PLATELET VOLUME 8.1 fL (7.4-10.4); MONOCYTES % (AUTO) 7 % (2-9); NEUTROPHILS # (AUTO) 4.83 x10^3/uL (1.8-6.8); NEUTROPHILS % (AUTO) 88 % (42-75); PLATELET COUNT 229 x10^3/uL (130-400); RED CELL DISTRIBUTION WIDTH 15.4 % (9.4-14.8)
--- NOTE | 2019-01-15 15:48 | NUR ---
ASSUMED CARE OF PT AT THIS TIME. OSCAR ANDERSON AT BEDSIDE FOR EVAL. PT RESTING ON GURNEY. NAD NOTED. SKIN SLIGHTLY PALE, WARM AND DRY. RESP EVEN AND UNLABORED. PT SPEAKING IN FULL 5-7 WORD SENTENCES W/O DIFFICULTY. PT ON CONT BP, CARDIAC AND O2 MONITORS. FAMILY AT BEDSIDE. CALL LIGHT WITHIN REACH. WILL CONT TO MONITOR PT.
[2019-01-15 15:57] LABS: ALANINE AMINOTRANSFERASE 14 U/L (12-78); ALBUMIN 3.2 g/dL (3.4-5.0); ANION GAP 11 mmol/L (5-15); CHLORIDE 97 mmol/L (98-107); CREATININE 2.18 mg/dL (0.7-1.3)
[2019-01-15] MEDS ORDERED: ALBUTEROL/IPRATROPIUM 2.5MG/0.5MG, 3 ML NPPB ONE (16:00)
[2019-01-15] MEDS ORDERED: ONDANSETRON 2MG/ML, 2ML IVPush ONE (16:00)
[2019-01-15] MEDS ORDERED: FAMOTIDINE 20 MG/2 ML IVPush ONE (16:00)
[2019-01-15] MEDS ORDERED: SODIUM CHLORIDE FLUSH 10ML SYR IVF ONE (16:00)
[2019-01-15 16:01] LABS: ALKALINE PHOSPHATASE 95 U/L (45-117); TOTAL PROTEIN 7.6 g/dL (6.4-8.2)
[2019-01-15 16:05] LABS: TROPONIN I 0.155 ng/mL (0.000-0.045)
[2019-01-15] MEDS ORDERED: AZITHROMYCIN 500 MG in SODIUM CHLORIDE 0.9% 250 ML IV ONE (16:30)
[2019-01-15] MEDS ORDERED: FUROSEMIDE 40 MG/4 ML IV ONE (16:30)
[2019-01-15] MEDS ORDERED: ASPIRIN 81 MG TABLET CHEW PO ONE (16:30)
[2019-01-15] MEDS ORDERED: CEFTRIAXONE PMX 1GM/50ML 50 ML IV ONE (16:30)
[2019-01-15] MEDS ORDERED: ONDANSETRON 2MG/ML, 2ML ONE (16:31)
[2019-01-15] MEDS ORDERED: FUROSEMIDE 20 MG/2 ML ONE (16:32)
[2019-01-15] MEDS ORDERED: ASPIRIN 81 MG TABLET CHEW ONE (16:32)
[2019-01-15] MEDS ORDERED: FAMOTIDINE 20 MG/2 ML ONE (16:32)
[2019-01-15] MEDS ORDERED: CEFTRIAXONE PMX 1GM/50ML 50 ML ONE (16:32)
--- NOTE | 2019-01-15 16:45 | NUR ---
PT CURRENTLY RESTING ON GURNEY. NAD NOTED. SKIN PWD. RESP EVEN AND UNLABORED. PT ON CONT BP, CARDIAC AND O2 MONITORS. DAUGHTER AT BEDSIDE. PT AND DAUGHTER AWARE THAT WE ARE WAITING FOR LAB/IMAGING RESULTS. CALL LIGHT WITHIN REACH. WILL CONT TO MONITOR PT.
[2019-01-15 17:03] LABS: PROTHROMBIN TIME 89.5 Seconds (9.6-11.5)
[2019-01-15 17:06] LABS: INTERNATIONAL NORMALIZED RATIO 9.29 (0.93-1.1)
[2019-01-15] MEDS ORDERED: DILTIAZEM 5 MG/ML, 5ML IVPush PRN (17:30)
[2019-01-15] MEDS ORDERED: PANTOPRAZOLE 80 MG in SODIUM CHLORIDE 0.9% 100 ML IV SCH (17:30)
[2019-01-15] MEDS ORDERED: ONDANSETRON ODT 4 MG PO PRN (17:30)
[2019-01-15] MEDS ORDERED: ENALAPRILAT 1.25 MG/ML, 2ML IVPush PRN (17:30)
[2019-01-15] MEDS ORDERED: PANTOPRAZOLE 80 MG in SODIUM CHLORIDE 0.9% 50 ML IV ONE (17:30)
[2019-01-15] MEDS ORDERED: ONDANSETRON 2MG/ML, 2ML IVPush PRN (17:30)
[2019-01-15] MEDS ORDERED: PLEASE ENTER HEIGHT AND WEIGHT MC SCH (17:30)
[2019-01-15] MEDS ORDERED: ZOLPIDEM 5MG TABLET PO PRN (17:30)
[2019-01-15] MEDS ORDERED: PHYTONADIONE 5 MG TABLET PO ONE (17:30)
[2019-01-15] MEDS ORDERED: DOCUSATE 100 MG CAPSULE PO PRN (17:30)
[2019-01-15] MEDS: FUROSEMIDE 40 MG/4 ML IV SCH (17:42)
--- NOTE | 2019-01-15 17:50 | NUR ---
PT MEDICATED ORDERED BY OSCAR ANDERSON FOR INR OF 9.29. PT AND PT'S DAUGHTER VERBALIZE UNDERSTANDING OF TREATMENT. PT AND FAMILY AWARE WE ARE WAITING FOR ADMISSION.
--- NOTE | 2019-01-15 17:57 | NUR ---
REPORT TO TIFFANIE RITCHIE ON TELE.
[2019-01-15 18:06] LABS: TROPONIN I 0.158 ng/mL (0.000-0.045)
[2019-01-15] MEDS ORDERED: ALBUTEROL SULFATE 2.5 MG/3 ML ONE (18:26)
[2019-01-15] MEDS ORDERED: ALBUTEROL/IPRATROPIUM 2.5MG/0.5MG, 3 ML ONE (18:34)
[2019-01-15] MEDS: ALBUTEROL SULFATE 2.5 MG/3 ML NPPB SCH (18:36)
[2019-01-15] MEDS: ALBUTEROL/IPRATROPIUM 2.5MG/0.5MG, 3 ML NPPB SCH (20:00)
[2019-01-15 20:30] VITALS: BP 102/56
[2019-01-15 20:42] VITALS: BP 102/56
[2019-01-15] MEDS: GUAIFENESIN/DM 200-20MG, 10ML UDC PO PRN (21:31)
[2019-01-15 23:35] LABS: TROPONIN I 0.182 ng/mL (0.000-0.045)
[2019-01-16 01:00] VITALS: BP 88/49
[2019-01-16 02:40] VITALS: BP 101/58
[2019-01-16 05:56] LABS: MEAN CORPUSCULAR HEMOGLOBIN 33.1 pg (27.5-34.5); MEAN CORPUSCULAR VOLUME 97.3 fL (81-97); MEAN PLATELET VOLUME 8.2 fL (7.4-10.4); PLATELET COUNT 188 x10^3/uL (130-400); RED BLOOD COUNT 3.44 x10^6/uL (4.38-5.82); RED CELL DISTRIBUTION WIDTH 15.3 % (9.4-14.8)
[2019-01-16 06:03] LABS: ANION GAP 9 mmol/L (5-15); CALCIUM 9.2 mg/dL (8.5-10.1); CHLORIDE 99 mmol/L (98-107)
[2019-01-16 06:04] LABS: CREATININE 2.08 mg/dL (0.7-1.3)
[2019-01-16 06:06] LABS: INTERNATIONAL NORMALIZED RATIO 4.18 (0.93-1.1); PROTHROMBIN TIME 41.5 Seconds (9.6-11.5)
[2019-01-16 06:19] LABS: MD YES
[2019-01-16 06:23] LABS: <PLATELET ESTIMATE> ADEQUATE; <PLT MORPHOLOGY> NORMAL PLT MORPH; ANISOCYTOSIS 1+; BAND#(MANUAL) 1.85 x10^3/uL; BANDS%(MANUAL) 26 % (0-7); LYMPH#(MANUAL) 0.28 x10^3/uL (1-3.4); LYMPHS% (MANUAL) 4 % (22-44); METAMYELOCYTES# (MANUAL) 0.14 x10^3/uL (0-0); METAMYELOCYTES% (MANUAL) 2 % (0-1); MONOS#(MANUAL) 0.57 x10^3/uL (0.3-2.7); MONOS% (MANUAL) 8 % (2-9); SEG#(MANUAL) 4.26 x10^3/uL (1.8-6.8); SEGS% (MANUAL) 60 % (42-75); TOXIC GRAN 1+
[2019-01-16 06:24] LABS: PMNS WITH VACUOLES 1+
[2019-01-16 06:25] LABS: POLYCHROMASIA 1+
[2019-01-16 06:26] LABS: MICROSCOPIC AUTO
[2019-01-16 06:30] LABS: CULTURE INDICATED? YES
[2019-01-16] MEDS: ALBUTEROL/IPRATROPIUM 2.5MG/0.5MG, 3 ML NPPB SCH ×4 (07:00→19:16)
[2019-01-16] MEDS: FUROSEMIDE 40 MG/4 ML IV SCH ×2 (07:30→17:00)
[2019-01-16 07:53] VITALS: BP 84/44
[2019-01-16] MEDS ORDERED: HOLD COUMADIN MC PRN (08:00)
[2019-01-16] MEDS: PANTOPROZOLE 40MG TABLET PO SCH (08:56)
[2019-01-16] MEDS: TAMSULOSIN 0.4 MG CAP.ER.24H PO SCH ×2 (08:56→21:00)
[2019-01-16] MEDS: CHOLECALCIFEROL 1,000 UNIT TABLET PO SCH (08:56)
[2019-01-16] MEDS: MULTIVITS,STRESS FORMULA 1 TABLET PO SCH (08:56)
[2019-01-16] MEDS: SPIRONOLACTONE 50 MG TABLET PO SCH (09:00)
[2019-01-16] MEDS: CEFTRIAXONE 500 MG in DEXTROSE 5% 50 ML IV SCH (09:01)
[2019-01-16] MEDS: ASCORBIC ACID 500 MG TABLET PO SCH ×2 (09:01→17:56)
[2019-01-16 11:51] LABS: TROPONIN I 0.172 ng/mL (0.000-0.045)
[2019-01-16] MEDS ORDERED: LIDOCAINE-MPF 1%, 5ML ONE (12:29)
[2019-01-16] MEDS ORDERED: SODIUM CHLORIDE 0.9% 1,000 ML IV SCH (13:00)
[2019-01-16] MEDS ORDERED: PHARMACY MAY ADJ FOR RENAL FX MC PRN (13:00)
[2019-01-16 13:29] VITALS: BP 103/60
[2019-01-16] MEDS: AZITHROMYCIN 500 MG in SODIUM CHLORIDE 0.9% 250 ML IV SCH (13:44)
[2019-01-16] MEDS: ALBUMIN HUMAN 25% 100 ML IV SCH ×2 (14:08→21:00)
[2019-01-16 19:01] VITALS: BP 94/61
[2019-01-16 23:19] VITALS: BP 101/62
[2019-01-17] MEDS: ALBUMIN HUMAN 25% 100 ML IV SCH ×4 (02:50→21:14)
[2019-01-17 03:55] LABS: INTERNATIONAL NORMALIZED RATIO 2.37 (0.93-1.1); PROTHROMBIN TIME 24.1 Seconds (9.6-11.5)
[2019-01-17 03:58] LABS: ALANINE AMINOTRANSFERASE 12 U/L (12-78); ALBUMIN 3.1 g/dL (3.4-5.0); ANION GAP 8 mmol/L (5-15); CALCIUM 9.1 mg/dL (8.5-10.1); CHLORIDE 101 mmol/L (98-107); CREATININE 1.82 mg/dL (0.7-1.3)
[2019-01-17 04:00] LABS: ALKALINE PHOSPHATASE 62 U/L (45-117); BILIRUBIN,TOTAL 1.4 mg/dL (0.2-1.0)
[2019-01-17 04:02] LABS: MEAN CORPUSCULAR HGB CONC 32.9 g/dL (33.2-36.2); MEAN CORPUSCULAR VOLUME 97.4 fL (81-97); MEAN PLATELET VOLUME 8.1 fL (7.4-10.4); PLATELET COUNT 180 x10^3/uL (130-400); RED CELL DISTRIBUTION WIDTH 15.5 % (9.4-14.8)
[2019-01-17 05:47] LABS: MD YES
[2019-01-17 05:49] LABS: ANISOCYTOSIS 1+; BANDS%(MANUAL) 19 % (0-7); LYMPH#(MANUAL) 0.25 x10^3/uL (1-3.4); LYMPHS% (MANUAL) 3 % (22-44); MONOS#(MANUAL) 0.42 x10^3/uL (0.3-2.7); MONOS% (MANUAL) 5 % (2-9); MYELOCYTES# (MANUAL) 0.08 x10^3/uL (0-0); MYELOCYTES% (MANUAL) 1 % (0-0); POLYCHROMASIA 1+; SEG#(MANUAL) 6.05 x10^3/uL (1.8-6.8); SEGS% (MANUAL) 72 % (42-75)
[2019-01-17 05:51] LABS: <PLATELET ESTIMATE> ADEQUATE; <PLT MORPHOLOGY> NORMAL PLT MORPH; TOXIC GRAN 1+
[2019-01-17] MEDS: ALBUTEROL/IPRATROPIUM 2.5MG/0.5MG, 3 ML NPPB SCH (06:50)
[2019-01-17 07:27] VITALS: BP 107/58
[2019-01-17] MEDS: FUROSEMIDE 40 MG/4 ML IV SCH ×2 (07:30→16:14)
[2019-01-17] MEDS: SPIRONOLACTONE 50 MG TABLET PO SCH (08:31)
[2019-01-17] MEDS: MULTIVITS,STRESS FORMULA 1 TABLET PO SCH (08:52)
[2019-01-17] MEDS: CEFTRIAXONE 500 MG in DEXTROSE 5% 50 ML IV SCH (08:52)
[2019-01-17] MEDS: PANTOPROZOLE 40MG TABLET PO SCH (08:52)
[2019-01-17] MEDS: ASCORBIC ACID 500 MG TABLET PO SCH ×2 (08:52→16:15)
[2019-01-17] MEDS: CHOLECALCIFEROL 1,000 UNIT TABLET PO SCH (08:52)
[2019-01-17 12:30] VITALS: BP 104/60
[2019-01-17] MEDS: AZITHROMYCIN 500 MG in SODIUM CHLORIDE 0.9% 250 ML IV SCH (13:07)
[2019-01-17] MEDS: GUAIFENESIN/DM 200-20MG, 10ML UDC PO PRN (17:31)
[2019-01-17] MEDS ORDERED: WARFARIN 5 MG TABLET PO-COUM ONE (18:00)
[2019-01-17] MEDS ORDERED: HYDROcodone/APAP 5/325 TABLET PO PRN (18:00)
[2019-01-17 20:45] VITALS: BP 103/57
[2019-01-18 01:07] VITALS: BP 95/59
[2019-01-18] MEDS: ALBUMIN HUMAN 25% 100 ML IV SCH ×4 (02:46→23:13)
[2019-01-18 06:02] LABS: INTERNATIONAL NORMALIZED RATIO 2.86 (0.93-1.1); PROTHROMBIN TIME 28.8 Seconds (9.6-11.5)
[2019-01-18 06:05] LABS: CHLORIDE 102 mmol/L (98-107)
[2019-01-18 06:16] LABS: ALANINE AMINOTRANSFERASE 17 U/L (12-78); ALBUMIN 3.7 g/dL (3.4-5.0); ALKALINE PHOSPHATASE 52 U/L (45-117); ANION GAP 9 mmol/L (5-15); BILIRUBIN,TOTAL 1.8 mg/dL (0.2-1.0); CALCIUM 9.2 mg/dL (8.5-10.1); CREATININE 1.42 mg/dL (0.7-1.3); TOTAL PROTEIN 6.1 g/dL (6.4-8.2)
[2019-01-18 06:28] LABS: MEAN CORPUSCULAR HEMOGLOBIN 31.7 pg (27.5-34.5); MEAN CORPUSCULAR HGB CONC 32.8 g/dL (33.2-36.2); MEAN CORPUSCULAR VOLUME 96.6 fL (81-97); MEAN PLATELET VOLUME 7.9 fL (7.4-10.4); PLATELET COUNT 170 x10^3/uL (130-400); RED CELL DISTRIBUTION WIDTH 15.5 % (9.4-14.8)
[2019-01-18 06:46] LABS: MD YES
[2019-01-18 06:48] LABS: <PLATELET ESTIMATE> ADEQUATE; <PLT MORPHOLOGY> NORMAL PLT MORPH; ANISOCYTOSIS 1+; BAND#(MANUAL) 1.25 x10^3/uL; BANDS%(MANUAL) 12 % (0-7); LYMPH#(MANUAL) 0.31 x10^3/uL (1-3.4); LYMPHS% (MANUAL) 3 % (22-44); MONOS#(MANUAL) 0.94 x10^3/uL (0.3-2.7); MONOS% (MANUAL) 9 % (2-9); SEGS% (MANUAL) 76 % (42-75); TOXIC GRAN 1+
[2019-01-18 07:43] VITALS: BP 94/58
[2019-01-18] MEDS: MULTIVITS,STRESS FORMULA 1 TABLET PO SCH (09:36)
[2019-01-18] MEDS: TAMSULOSIN 0.4 MG CAP.ER.24H PO SCH (09:37)
[2019-01-18] MEDS: PANTOPROZOLE 40MG TABLET PO SCH (09:37)
[2019-01-18] MEDS: CHOLECALCIFEROL 1,000 UNIT TABLET PO SCH (09:37)
[2019-01-18] MEDS: ASCORBIC ACID 500 MG TABLET PO SCH ×2 (09:38→17:00)
[2019-01-18] MEDS: SPIRONOLACTONE 50 MG TABLET PO SCH (09:38)
[2019-01-18] MEDS: CEFTRIAXONE 500 MG in DEXTROSE 5% 50 ML IV SCH (09:39)
[2019-01-18] MEDS: FUROSEMIDE 40 MG/4 ML IV SCH ×2 (09:39→17:18)
[2019-01-18] MEDS: ALBUTEROL SULFATE 2.5 MG/3 ML NPPB SCH (10:10)
[2019-01-18] MEDS: MORPHINE SULFATE 4 MG/ML, 1ML IVPush PRN ×2 (10:29→17:18)
[2019-01-18 13:11] VITALS: BP 104/56
[2019-01-18] MEDS: AZITHROMYCIN 500 MG in SODIUM CHLORIDE 0.9% 250 ML IV SCH (13:39)
[2019-01-18] MEDS ORDERED: WARFARIN 2.5 MG TABLET PO-COUM ONE (18:00)
[2019-01-18 19:11] VITALS: BP 108/57
[2019-01-19 02:04] VITALS: BP 107/63
[2019-01-19 05:46] LABS: MEAN CORPUSCULAR HEMOGLOBIN 31.9 pg (27.5-34.5); MEAN CORPUSCULAR VOLUME 96.5 fL (81-97); MEAN PLATELET VOLUME 7.8 fL (7.4-10.4); PLATELET COUNT 178 x10^3/uL (130-400); RED BLOOD COUNT 3.36 x10^6/uL (4.38-5.82); RED CELL DISTRIBUTION WIDTH 15.6 % (9.4-14.8)
[2019-01-19 05:56] LABS: INTERNATIONAL NORMALIZED RATIO 3.76 (0.93-1.1); PROTHROMBIN TIME 37.5 Seconds (9.6-11.5)
[2019-01-19 05:57] LABS: ALANINE AMINOTRANSFERASE 16 U/L (12-78); ALBUMIN 3.9 g/dL (3.4-5.0); ANION GAP 9 mmol/L (5-15); CALCIUM 9.3 mg/dL (8.5-10.1); CHLORIDE 101 mmol/L (98-107); CREATININE 1.39 mg/dL (0.7-1.3)
[2019-01-19 05:59] LABS: ALKALINE PHOSPHATASE 57 U/L (45-117); BILIRUBIN,TOTAL 1.5 mg/dL (0.2-1.0); TOTAL PROTEIN 6.2 g/dL (6.4-8.2)
[2019-01-19] MEDS: ALBUMIN HUMAN 25% 100 ML IV SCH ×2 (06:08→11:39)
[2019-01-19 06:23] LABS: BASOPHILS % (AUTO) 0 % (0-1); EOSINOPHILS # (AUTO) 0.04 x10^3/uL (0-0.4); EOSINOPHILS % (AUTO) 0 % (1-7); LYMPHOCYTES # (AUTO) 0.31 x10^3/uL (1-3.4); LYMPHOCYTES % (AUTO) 3 % (22-44); MD SCAN; MONOCYTES # (AUTO) 0.86 x10^3/uL (0.2-0.8); MONOCYTES % (AUTO) 7 % (2-9); NEUTROPHILS # (AUTO) 11.23 x10^3/uL (1.8-6.8); NEUTROPHILS % (AUTO) 90 % (42-75)
[2019-01-19] MEDS: CHOLECALCIFEROL 1,000 UNIT TABLET PO SCH (08:08)
[2019-01-19] MEDS: PANTOPROZOLE 40MG TABLET PO SCH (08:09)
[2019-01-19] MEDS: SPIRONOLACTONE 50 MG TABLET PO SCH (08:09)
[2019-01-19] MEDS: MULTIVITS,STRESS FORMULA 1 TABLET PO SCH (08:09)
[2019-01-19] MEDS: TAMSULOSIN 0.4 MG CAP.ER.24H PO SCH (08:09)
[2019-01-19] MEDS: FUROSEMIDE 40 MG/4 ML IV SCH (08:09)
[2019-01-19] MEDS: ASCORBIC ACID 500 MG TABLET PO SCH (08:09)
[2019-01-19 09:22] VITALS: BP 96/52
[2019-01-19] MEDS: CEFTRIAXONE 500 MG in DEXTROSE 5% 50 ML IV SCH (09:41)
[2019-01-19] MEDS ORDERED: CEFD300C37 PO (10:53)
[2019-01-19] MEDS ORDERED: PANT40TA5 PO (10:53)
[2019-01-19] MEDS ORDERED: DOXY100C2 PO (10:53)
[2019-01-19] MEDS ORDERED: Tamsulosin PO (10:53)
[2019-01-19] MEDS ORDERED: GUAI-103 PO (10:54)
[2019-01-19] MEDS ORDERED: WARF3TAB PO (10:55)
[2019-01-19] MEDS: AZITHROMYCIN 500 MG in SODIUM CHLORIDE 0.9% 250 ML IV SCH (12:54)
[2019-01-19 14:00] VITALS: BP 96/67
== END 2019-01-19 14:15 | disposition hospice, home (50) | DRG 871 ==
LOC: ED 15:56 → EDIP 17:12 → 4WST 18:53 → DCLOUNGE 01-19 10:51 → 4WST 01-19 10:51
PROVIDERS: ADMIT Family Medicine; ATTEND Family Medicine
PROC: 0W9G3ZZ Drainage of Peritoneal Cavity, Percutaneous Approach (ICD-10-PCS; principal; 2019-01-16)
DX: A41.9 Sepsis, unspecified organism (principal); J18.0 Bronchopneumonia, unspecified organism; I50.31 Acute diastolic (congestive) heart failure; J96.01 Acute respiratory failure with hypoxia; I13.0 Hypertensive heart and chronic kidney disease with heart failure and stage 1 through stage 4 chronic kidney disease, or unspecified chronic kidney disease; E87.2 Acidosis; N17.9 Acute kidney failure, unspecified; E87.1 Hypo-osmolality and hyponatremia; K92.0 Hematemesis; R18.8 Other ascites; N18.4 Chronic kidney disease, stage 4 (severe); Z66 Do not resuscitate; E11.22 Type 2 diabetes mellitus with diabetic chronic kidney disease; E78.5 Hyperlipidemia, unspecified; G47.33 Obstructive sleep apnea (adult) (pediatric); I48.91 Unspecified atrial fibrillation; J43.9 Emphysema, unspecified; K74.60 Unspecified cirrhosis of liver; R79.1 Abnormal coagulation profile; Z85.46 Personal history of malignant neoplasm of prostate; Z79.01 Long term (current) use of anticoagulants; Z87.891 Personal history of nicotine dependence; Z95.3 Presence of xenogenic heart valve
CPT/HCPCS: 36415; 49083; 71045; 80048; 80053; 81001; 82140; 83605; 83735; 83880; 84100; 84145; 84484; 85025; 85610; 85730; 87040; 87070; 87086; 87107; 87205; 93005; 94640; 96374; 96375; 99285; G0378; J0456; J0696; J1940; J2405; J7613; J7620; P9047; C9113; J2270; J3490; J7030; J7050